=== PATIENT | female | born 1990 | race Caucasian/White ===

== ENCOUNTER 2023-11-12 21:35 | Emergency (ER) | payer OTHER, SELFPAY ==
--- NOTE | 2023-11-12 21:42 | ED.SYNCOPE ---
HPI - Syncope General Chief Complaint: Syncope Stated Complaint: Syncope episode, [employer], hypotensive, no strike Time Seen by Provider: 11/12/23 21:41 Source: patient and EMS Mode of arrival: EMS Limitations: no limitations History of Present Illness HPI narrative: 33 yo female with history of ADHD, restless leg syndrome female presents to the ER from [facility] for evaluation of a syncopal event. She was admitted to [facility] from [facility] last night for evaluation of new onset paranoid delusions. She was started on Prazosin and got her 1st dose tonight at 8pm. She reports about 30 minutes after taking the prazosin she was walking down the and she felt her ?glucose drop.? She was feeling lightheaded, dizzy, like she was going to pass out and ?empty inside. ? She called for the nurse. She held onto the railing in the hallway and slowly lowered herself to the ground. She states she lost consciousness and the next thing she remembers is people around her. She did not sustain any injuries or hit her head. Blood pressure was taken by staff and was hypotensive 67/41. On EMS arrival blood pressure improved to 112/72. Patient as vomiting on arrival to the ER. Patient denies any history of syncope in the past. No chest pain, shortness for breath. She is feeling better. MD complaint: loss of consciousness Onset (ago): minute(s) Description of event: post-event confusion Prodromal symptoms: lightheaded Witnessed: Yes - by Bystander Context: new medication Injuries sustained associated with event: none Current symptoms: nausea Treatments prior to arrival: none Related Data Allergies Allergy/AdvReac Type Severity Reaction Status Date / Time Sulfa (Sulfonamide Allergy Rash Verified 11/12/23 21:50 Antibiotics) Review of Systems Review of Systems: Yes all other systems are reviewed and are negative [facility] Social History Social History Smoked in Last 30 Days: No Use of substances other than those prescribed or required for medical reasons: No Advance Directives: No Advance Directives Information Provided: No Patient : No Physical Exam Vital Signs: Vital Signs: Last Vital Signs Temp 97.6 F 11/12/23 21:48 Pulse 82 11/13/23 00:00 Resp 17 11/13/23 00:00 BP 104/61 11/13/23 00:00 Pulse Ox 96 11/13/23 00:00 O2 Del Method Room Air 11/13/23 00:00 BMI result Body Mass Index 22.1 Appearance: Alert. Oriented X3. No acute distress. Head: normocephalic, atraumatic. Eyes: Pupils equal, round and reactive to light. ENT: Pharynx normal. No tonsillar swelling or exudate. Neck: Normal inspection. Neck supple. CVS: Normal heart rate and rhythm. Pulses normal. Respiratory: No respiratory distress. Breath sounds normal. Abdomen: Soft and nontender. +BS x4 Skin: Skin warm and dry. Normal skin color. Normal skin turgor. No rashes. Extremities: No lower extremity edema. No joint swelling. Neuro/psych: Oriented X 3. No motor deficit. No sensory deficit. CN II-XII intact. Normal speech and cognition. Medications Administered Generic Name Dose Route Start Last Admin Trade Name Freq PRN Reason Stop Dose Admin Sodium Chloride 1,000 mls @ 999 mls/hr 11/13/23 00:30 11/13/23 01:00 Ns IVCONT 11/13/23 01:30 999 mls/hr .Q1H1M SERA Administration Discontinued Medications Generic Name Dose Route Start Last Admin Trade Name Freq PRN Reason Stop Dose Admin Sodium Chloride 1,000 mls @ 999 mls/hr 11/12/23 22:00 11/13/23 01:01 Ns IV 11/12/23 23:00 Infused .Q1H1M SERA Infusion Ondansetron HCl 4 mg 11/12/23 21:54 11/12/23 22:04 Ondansetron Hcl 4 Mg/2 Ml Vial IVPUSH 11/12/23 21:55 4 mg ONCE ONE Administration Medical Decision Making Medical Decision Making [facility] Narrative: 33-year-old female presents to the ER for evaluation of syncopal event in the setting of be administered prazosin for the 1st time. She was hypotensive 60/40s. This improved spontaneously with no intervention. Half-life of prazosin is 2-3 hours. Blood pressure is improved 105/60. She is feeling better but not 100%. Will establish IV, give IV fluids and Zofran. Check basic lab workup. 1:00am - basic lab workup was unremarkable. Patient did have another episode of hypotension. 2nd L of IV fluids were ordered. Will repeat orthostatic vital signs after 2 L of fluid. Differential Diagnosis Differential Diagnoses: The differential diagnosis associated with the presentation includes Adverse medication reaction, orthostatic hypotension, vasovagal syncope, dehydration Admission/Observation Consideration of admission/observation: Escalation of care including admission/observation considered New syncopal event, considered observation vs admit Lab Data MDM Lab Attestation statement: I reviewed the patient's lab results. 11/12/23 22:11 11/12/23 22:11 Labs: Lab Results 11/12/23 11/12/23 Range/Units 22:11 23:53 WBC 5.8 (4.8-10.8) X10*3/uL RBC 3.78 L (4.20-5.50) X10*6/uL Hgb 12.1 (12.0-16.0) g/dl Hct 35.0 L (37.0-47.0) % MCV 92.6 (80.0-98.0) fL MCH 32.0 (27.0-33.0) pg MCHC 34.6 (31.0-35.0) g/dl RDW 12.5 (11.0-16.0) % Plt Count 221 (160-400) X10*3/uL MPV 9.1 L (9.4-12.3) fL Immature Gran % (Auto) 0.3 (0.0-0.4) % Neut % (Auto) 62.2 (45-73) % Lymph % (Auto) 27.2 (20-40) % [place] % (Auto) 8.3 (2-11) % Eos % (Auto) 1.7 (0-4) % Baso % (Auto) 0.3 (0-2) % Lymph # (Auto) 1.6 (1.2-4.9) X10*3/uL [place] # (Auto) 0.5 (0.1-1.2) X10*3/uL Eos # (Auto) 0.1 (0.0-0.4) X10*3/uL Baso # (Auto) 0.0 (0.0-0.2) X10*3/uL Abs Immat Gran (auto) 0.02 (0.00-0.03) X10*3/uL Absolute Neuts (auto) 3.6 (2.0-8.3) x10*3/uL Absolute Nucleated RBC 0.000 (0.0-0.012) X10*3/uL Nucleated RBC % (auto) 0.0 (0.0-0.2) /100WBC Sodium 140 (135-145) mmol/L Potassium 3.3 (3.3-5.1) mmol/L Chloride 107 (96-108) mmol/L Carbon Dioxide 26 (22-29) mmol/L Anion Gap 10 L (12-20) BUN 10 (9-16) mg/dL Creatinine 0.81 (0.5-1.4) mg/dL Estim Creat Clear Calc 88.1 Estimated GFR > 60 POC Glucose 140 H (60-115) mg/dL Random Glucose 121 H (60-115) mg/dL Calcium 8.6 (8.4-10.2) mg/dL Independent Interpretation I performed an independent interpretation of an: EKG Interpretation: EKG with normal sinus rhythm, sinus arrhythmia, ventricular rate 65 beats per minute, no ST segment elevations or depressions. QTC prolonged at 476. Independent Historian Clinical information obtained from an independent historian. History obtained from or confirmed by: EMS External Record Review External record reviewed: Inpatient record Critical Care Time Critical Care Time Critical Care Time: Yes Total Critical Care Time: 39 Attestation: I have personally provided critical care time exclusive of time spent on separately billable procedures. Time includes review of lab data, chart review, bedside reassessments of mental status, hemodynamics, and monitoring for potential decompensation. Intervention performed as documented. Discharge Plan Discharge Clinical Impression: Syncope, Hypotension due to medication Patient Disposition: Still a Patient Instructions: Syncope (DC) Additional Instructions: do not take prazosin, your blood pressure went very low after taking this medication your lab work was unremarkable follow up with your doctor Print Language: Japanese
[2023-11-12 21:47] VITALS: BP 112/72; PULSE 70; O2SAT 99
[2023-11-12 21:48] VITALS: BP 105/60; PULSE 74; RESP 16; TEMP 36.4; O2SAT 99; BMI 22.1
--- NOTE | 2023-11-12 21:54 | ECG_ITS ---
Test Reason : ? SYNCOPE Blood Pressure : / mmHG Vent. Rate : 065 BPM Atrial Rate : 065 BPM P-R Int : 124 ms QRS Dur : 098 ms QT Int : 458 ms P-R-T Axes : 083 084 072 degrees QTc Int : 476 ms Normal sinus rhythm with sinus arrhythmia Normal ECG No previous ECGs available Referred By: Delia Becerra Electronically Signed By:LEON MCKEE
[2023-11-12] MEDS: ondansetron HCL 4 MG/2 ML VIAL IVPUSH (22:04)
[2023-11-12] MEDS: 0.9 % Sodium Chloride 1,000 ML 999 ML IV (22:04)
[2023-11-12 22:15] VITALS: PULSE 72; O2SAT 99
[2023-11-12 22:15] LABS: MANUAL DIFF FLAG NO
[2023-11-12 22:24] LABS: Basophils Percent Auto 0.3 % (0-2); Eosinophils Absolute Auto 0.1 X10*3/uL (0.0-0.4); Eosinophils Percent Auto 1.7 % (0-4); Hemoglobin 12.1 g/dl (12.0-16.0); Imm Gran Abs Auto 0.02 X10*3/uL (0.00-0.03); Imm Gran Pct Auto 0.3 % (0.0-0.4); Lymphocytes Absolute Auto 1.6 X10*3/uL (1.2-4.9); Lymphocytes Percent Auto 27.2 % (20-40); Mean Corpuscular HGB Conc 34.6 g/dl (31.0-35.0); Mean Corpuscular Volume 92.6 fL (80.0-98.0); Mean Platelet Volume 9.1 fL (9.4-12.3); Monocytes Absolute Auto 0.5 X10*3/uL (0.1-1.2); Monocytes Percent Auto 8.3 % (2-11); Neutrophils Absolute Auto 3.6 x10*3/uL (2.0-8.3); Neutrophils Percent Auto 62.2 % (45-73); Platelet Count 221 X10*3/uL (160-400); Red Blood Count 3.78 X10*6/uL (4.20-5.50); Red Cell Distribution Width 12.5 % (11.0-16.0); White Blood Count 5.8 X10*3/uL (4.8-10.8)
--- NOTE | 2023-11-12 22:25 | PC.NURSE ---
PT arrived from [facility] and reports this is her 2nd day of admission. Charge nurse made aware of need for 1:1 sitter as pt is from a locked unit. Pt is not suicidal or homicidal but per ppw, she is there for psychosis/delusions. PT a & o x 4, no delusional statements made to this filing writer as of yet. Plan of care ongoing. VSS @ this time.
[2023-11-12 22:38] LABS: Anion Gap 10 (12-20); Blood Urea Nitrogen 10 mg/dL (9-16); Calcium 8.6 mg/dL (8.4-10.2); Carbon Dioxide 26 mmol/L (22-29); Chloride 107 mmol/L (96-108); Creatinine Clr Calc Pharmacy 88.1; Estimated Glomerular Filt Rate > 60; Glucose Random 121 mg/dL (60-115); Potassium 3.3 mmol/L (3.3-5.1); Sodium 140 mmol/L (135-145)
[2023-11-12 23:58] VITALS: BP 86/47; BP 89/53; PULSE 62; PULSE 75
[2023-11-12 23:59] VITALS: BP 96/57; PULSE 77
[2023-11-12 23:59] LABS: Glucose, Whole Blood 140 mg/dL (60-115)
[2023-11-13] VITALS: BP 104/61; PULSE 82; RESP 17; O2SAT 96
[2023-11-13] MEDS: 0.9 % Sodium Chloride 1,000 ML 999 ML IVCONT (01:00)
[2023-11-13 04:25] VITALS: BP 113/63; PULSE 89; RESP 16; O2SAT 98
--- NOTE | 2023-11-13 11:01 | PC.NURSE ---
report to rosey stevens
[2023-11-13 12:00] VITALS: BP 124/79; PULSE 80; RESP 18; TEMP 36.6; O2SAT 99
[2023-11-13 12:27] VITALS: BP 124/79; PULSE 80; RESP 18; TEMP 36.6; O2SAT 99
== END 2023-11-13 12:28 ==
PROVIDERS: Emergency Medicine; Physician Assistant; Emergency Provider Emergency Medicine Emergency Medical Services
DX: R55 Syncope and collapse (principal); I95.2 Hypotension due to drugs; T44.6X5A Adverse effect of alpha-adrenoreceptor antagonists, initial encounter; Y92.10 Unspecified residential institution as the place of occurrence of the external cause
CPT/HCPCS: 36415; 80048; 82947; 85025; 93005; 96361; 96374; 99285; J2405

== ENCOUNTER → 2023-11-12 21:54 | Outpatient (BNV) | payer OTHER, SELFPAY | PROVIDERS: Emergency Provider Emergency Medicine Emergency Medical Services; Visit Provider Internal Medicine | DX: I49.8 Other specified cardiac arrhythmias (principal) | CPT/HCPCS: 93010 ==